=== PATIENT | female | born 1980 | race Caucasian/White ===

== ENCOUNTER 2019-08-28 19:32 | Emergency (ER) | payer SELFPAY ==
[2019-08-28] MEDS ORDERED: Lidocaine 2% Viscous Solution 15 ML Cup PO ONE (19:54)
[2019-08-28] MEDS ORDERED: Benzocaine 20% Topical Spray UD MUCMEM ONE (19:54)
--- NOTE | 2019-08-28 19:56 | EDM.PDOC ---
ED HPI GENERAL MEDICAL PROBLEM - General Chief Complaint: General Stated Complaint: infection of some kind in mouth Time Seen by Provider: 08/28/19 19:54 - History of Present Illness INITIAL COMMENTS - FREE TEXT/NARRATIVE: HISTORY AND PHYSICAL: History of present illness: Patient is a 39-year-old presents to the ED with concern of dental infection. She states over the past few days she is having swelling to the right lower jaw and dental pain. She states she has had this in the past and it cleared with antibiotics. She states she has an appointment with a dentist in a couple of weeks. She denies fevers, chills, nausea, vomiting, trismus, difficulty swallowing or breathing. Review of systems: As per history of present illness and below otherwise all systems reviewed and negative. Past medical history: As per history of present illness and as reviewed below otherwise noncontributory. Surgical history: As per history of present illness and as reviewed below otherwise noncontributory. Social history: No reported history of drug or alcohol abuse. Family history: As per history of present illness and as reviewed below otherwise noncontributory. Physical exam: General: Patient sitting comfortably in no acute distress and nontoxic appearing HEENT: swelling noted to the right lower jaw. Poor dentition throughout.Atraumatic, normocephalic, pupils reactive, negative for conjunctival pallor or scleral icterus, mucous membranes moist, throat clear, neck supple, nontender, trachea midline. No meningeal signs. Lungs: Clear to auscultation, breath sounds equal bilaterally, chest nontender. Heart: S1S2, regular, negative for clicks, rubs, or overt murmur. Abdomen: Soft, nondistended, nontender. Negative for masses or hepatosplenomegaly. Negative for costovertebral tenderness. No rigidity, rebound , guarding. Pelvis: Stable nontender. Genitourinary: Deferred. Rectal: Deferred. Extremities: Atraumatic, negative for cords or calf pain. Neurovascular unremarkable. Neuro: Awake, alert, oriented. Cranial nerves II through XII unremarkable. Cerebellum unremarkable. Motor and sensory unremarkable throughout. Exam nonfocal. Notes: Diagnostics: none Therapeutics: Dental balls Prescriptions: Augmentin Impression: dentalgia, dental infection Plan: Take antibiotic as instructed Use dental balls and alternate Tylenol and Motrin as needed Follow-up with dentist Return to ED as needed as discussed Definitive disposition and diagnosis as appropriate pending reevaluation and review of above. right lower mouth Pain Score (Numeric/FACES): 1 - Related Data Allergies Allergy/AdvReac Type Severity Reaction Status Date / Time No Known Allergies Allergy Verified 08/28/19 19:45 Home Meds: Home Meds Amoxicillin/Potassium Clav [Augmentin 875-125 Tablet] 1 each PO BID 7 Days #14 tablet 08/28/19 [Rx] Past Medical History - Past Health History Medical/Surgical History: Denies Medical/Surgical History - Infectious Disease History Infectious Disease History: Reports: Hepatitis C Social & Family History - Family History Family Medical History: Noncontributory - Tobacco Use Smoking Status *Q: Current Every Day Smoker Years of Tobacco use: 10 Packs/Tins Daily: 0.5 - Recreational Drug Use Recreational Drug Use: No ED ROS GENERAL - Review of Systems Review Of Systems: Comprehensive ROS is negative, except as noted in HPI. ED EXAM, GENERAL - Physical Exam Exam: See Below (see dictatoin) Course - Vital Signs Last Recorded V/S: Last Vital Signs Temp 97.3 F 08/28/19 19:42 Pulse 101 H 08/28/19 19:42 Resp 17 08/28/19 19:42 BP 141/77 H 08/28/19 19:42 Pulse Ox 98 08/28/19 19:42 - Orders/Labs/Meds Meds: Medications Discontinued Medications Generic Name Dose Route Start Last Admin Trade Name Freq PRN Reason Stop Dose Admin Benzocaine 2 each 08/28/19 19:54 Hurricaine One 20% MUCMEM 08/28/19 19:55 ONETIME ONE Lidocaine HCl 15 ml 08/28/19 19:54 Xylocaine 2% Viscous PO 08/28/19 19:55 ONETIME ONE Departure - Departure Time of Disposition: 19:54 Disposition: Home, Self-Care 01 Condition: Good Clinical Impression: Dentalgia, Dental infection - Discharge Information Prescriptions: Amoxicillin/Potassium Clav [Augmentin 875-125 Tablet] 1 each PO BID 7 Days #14 tablet Referrals: PCP,None [Primary Care Provider] - Forms: ED Department Discharge Additional Instructions: The following information is given to patients seen in the emergency department who are being discharged to home. This information is to outline your options for follow-up care. We provide all patients seen in our emergency department with a follow-up referral. The need for follow-up, as well as the timing and circumstances, are variable depending upon the specifics of your emergency department visit. If you don't have a primary care physician on staff, we will provide you with a referral. We always advise you to contact your personal physician following an emergency department visit to inform them of the circumstance of the visit and for follow-up with them and/or the need for any referrals to a consulting specialist. The emergency department will also refer you to a specialist when appropriate. This referral assures that you have the opportunity for follow-up care with a specialist. All of these measure are taken in an effort to provide you with optimal care, which includes your follow-up. Under all circumstances we always encourage you to contact your private physician who remains a resource for coordinating your care. When calling for follow-up care, please make the office aware that this follow-up is from your recent emergency room visit. If for any reason you are refused follow-up, please contact the [facility] at and asked to speak to the emergency department charge nurse. [facility] [address] [place] [address] [place] [address] Take antibiotic as instructed Use dental balls and alternate Tylenol and Motrin as needed Follow-up with dentist Return to ED as needed as discussed Sepsis Event Note - Evaluation Sepsis Screening Result: No Definite Risk - Focused Exam Vital Signs: Vital Signs Temp Pulse Resp BP Pulse Ox 08/28/19 19:42 97.3 F 101 H 17 141/77 H 98 Date Exam was Performed: 08/28/19 Time Exam was Performed: 20:00
== END 2019-08-28 20:12 | disposition home or self-care (01) ==
LOC: MW.ED 19:32
DX: K04.7 Periapical abscess without sinus (principal); F17.210 Nicotine dependence, cigarettes, uncomplicated
CPT/HCPCS: 99282; A9270; 99283